=== PATIENT | male | born 1990 | race Caucasian/White ===

== ENCOUNTER 2017-07-01 02:50 | Emergency (ER) | payer OTHER ==
[~2017-07-01] VITALS: Ht 182.9 cm; Wt 84.0 kg
[2017-07-01] MEDS ORDERED: IBUPROFEN 600 MG TABLET PO ONE (03:30)
[2017-07-01] MEDS ORDERED: ACETAMINOPHEN/CODEINE 300-30 MG TABLET PO ONE (03:30)
[2017-07-01] MEDS ORDERED: PERTUSS(ACELL),DIPH,TET VAC/PF 0.5 ML VIAL IM ONE (03:30)
[2017-07-01 05:08] VITALS: BP 132/74
== END 2017-07-01 05:25 | disposition home or self-care (01) ==
LOC: EMS 02:53 → EDSEX 02:53 → EMS 05:25
DX: S62.326A Displaced fracture of shaft of fifth metacarpal bone, right hand, initial encounter for closed fracture (principal); S62.314A Displaced fracture of base of fourth metacarpal bone, right hand, initial encounter for closed fracture; S00.531A Contusion of lip, initial encounter; F17.200 Nicotine dependence, unspecified, uncomplicated; Y08.89XA Assault by other specified means, initial encounter; Y93.89 Activity, other specified; Y92.89 Other specified places as the place of occurrence of the external cause; Y99.8 Other external cause status
CPT/HCPCS: 90471; 90715; 99284